=== PATIENT | female | born 1945 | race Caucasian/White ===

== ENCOUNTER 2017-11-12 12:38 | Emergency (ER) | payer OTHER ==
--- NOTE | 2017-11-12 13:11 | ER ---
Nurse's Notes [facility] Name: Avani Taylor Age: 72 yrs Sex: Female : 1945 Arrival Date: 11/12/2017 Time: 12:40 Bed 19 Private MD: Diagnosis: Anxiety disorder, unspecified Presentation: 11/12 12:44 Presenting complaint: EMS states: Pt c/o unable to sleep for 2 months. Pt states "I jl7 don't want any more tests, I'm just tired, I can't sleep.". Transition of care: patient was not received from another setting of care. Onset of symptoms was September 12, 2017. Risk Assessment: Do you want to hurt yourself or someone else? Patient reports no desire to harm self or others. Initial Sepsis Screen: Does the patient meet any 2 criteria? No. Patient's initial sepsis screen is negative. Does the patient have a suspected source of infection? No. Patient's initial sepsis screen is negative. Care prior to arrival: None. 12:44 Method Of Arrival: EMS: [facility] 12:44 Acuity: MARIAH 4 jl7 Triage Assessment: 12:48 General: Appears in no apparent distress. uncomfortable, Behavior is cooperative, jl7 anxious. Pain: Complains of pain in back of neck and head Pain does not radiate. Pain currently is 8 out of 10 on a pain scale. Quality of pain is described as "tense" Pain began years ago. Is continuous. EENT: No signs and/or symptoms were reported regarding the EENT system. Neuro: Level of Consciousness is awake, alert, obeys commands, Oriented to person, place, time. Cardiovascular: Patient's skin is warm and dry. Respiratory: Airway is patent Respiratory effort is even, unlabored, Respiratory pattern is regular, symmetrical. GI: No signs and/or symptoms were reported involving the gastrointestinal system. : No signs and/or symptoms were reported regarding the genitourinary system. Derm: Skin is pink, warm \\T\\ dry. Musculoskeletal: No signs and/or symptoms reported regarding the musculoskeletal system. Historical: - Allergies: 12:48 sertraline; jl7 12:48 OLANZAPINE; jl7 12:48 QUETIAPINE; jl7 - PMHx: 12:48 Anxiety; Depression; Hypertension; jl7 - Immunization history:: Adult Immunizations unknown. - Social history:: Smoking status: unknown. - Ebola Screening: : No symptoms or risks identified at this time. Screenin:21 Abuse screen: Denies threats or abuse. Denies injuries from another. Nutritional jl7 screening: No deficits noted. Tuberculosis screening: No symptoms or risk factors identified. Fall Risk None identified. Assessment: 12:50 General: see triage assessment. jl7 Vital Signs: 12:51 BP 118 / 64; Pulse 75; Resp 16 S; Temp 98.1(O); Pulse Ox 91% on R/A; Weight 98.88 kg jl7 (R); Height 5 ft. 9 in. (175.26 cm) (R); Pain 8/10; 13:21 BP 116 / 68; Pulse 74; Resp 16; Pulse Ox 94% ; jl7 12:51 Body Mass Index 32.19 (98.88 kg, 175.26 cm) jl7 ED Course: 12:40 Patient arrived in ED. 12:41 Sonido Galan PA is PHCP. jr8 12:41 Jose L Hernandez MD is Attending Physician. jr8 12:44 May Granado RN is Primary Nurse. jl7 12:47 Triage completed. jl7 12:48 Arm band placed on right wrist. jl7 12:50 Patient has correct armband on for positive identification. Placed in gown. Bed in low jl7 position. Call light in reach. Side rails up X 1. Pulse ox on. NIBP on. 13:10 Desmond Shaw MD is Referral Physician. jr8 13:22 No provider procedures requiring assistance completed. Patient did not have IV access jl7 during this emergency room visit. Administered Medications: No medications were administered Outcome: 13:10 Discharge ordered by . jr8 13:22 Discharged to home ambulatory. jl7 13:22 Condition: stable 13:22 Discharge instructions given to patient, Instructed on discharge instructions, follow up and referral plans. medication usage, Demonstrated understanding of instructions, follow-up care, medications, Prescriptions given X 2. 13:44 Patient left the ED. jl7 Signatures: Divya Morris RN RN Sonido Galan PA PA jr8 May Granado RN RN jl7
--- NOTE | 2017-11-12 13:11 | EDPHYS ---
Physician Documentation [facility] Name: Avani Taylor Age: 72 yrs Sex: Female : 1945 Arrival Date: 11/12/2017 Time: 12:40 Bed 19 Private MD: ED Physician Jose L Hernandez HPI: 11/12 13:06 This 72 yrs old Female presents to ER via EMS with complaints of Anxiety, jr8 unable to sleep. 13:06 The patient presents to the emergency department with anxiety, depression. Onset: The jr8 symptoms/episode began/occurred gradually, 7 month(s) ago. Past psychiatric history: Prior diagnosis: depression. Associated signs and symptoms: The patient has no apparent associated signs or symptoms. Severity of symptoms: At their worst the symptoms were moderate in the emergency department the symptoms are unchanged. The patient has experienced similar episodes in the past, a few times. The patient has not recently seen a physician. Patient stated that she is anxious and depressed over personal reasons. She would not give specific problems. Stated that she has past traumatic incidents. Came to ED because has not had a good nights sleep in several months and needs sleep. Stated that she is too anxious to sleep. Patient has not seen PCP for problem. Historical: - Allergies: 12:48 sertraline; jl7 12:48 OLANZAPINE; jl7 12:48 QUETIAPINE; jl7 - PMHx: 12:48 Anxiety; Depression; Hypertension; jl7 - Immunization history:: Adult Immunizations unknown. - Social history:: Smoking status: unknown. - Ebola Screening: : No symptoms or risks identified at this time. ROS: 13:06 Eyes: Negative for injury, pain, redness, and discharge, ENT: Negative for injury, jr8 pain, and discharge, Neck: Negative for injury, pain, and swelling, Cardiovascular: Negative for chest pain, palpitations, and edema, Respiratory: Negative for shortness of breath, cough, wheezing, and pleuritic chest pain, Abdomen/GI: Negative for abdominal pain, nausea, vomiting, diarrhea, and constipation, Back: Negative for injury and pain, MS/Extremity: Negative for injury and deformity, Skin: Negative for injury, rash, and discoloration, Neuro: Negative for headache, weakness, numbness, tingling, and seizure. 13:06 Psych: Positive for anxiety, depression. Exam: 13:06 Eyes: Pupils equal round and reactive to light, extra-ocular motions intact. Lids and jr8 lashes normal. Conjunctiva and sclera are non-icteric and not injected. Cornea within normal limits. Periorbital areas with no swelling, redness, or edema. ENT: Nares patent. No nasal discharge, no septal abnormalities noted. Tympanic membranes are normal and external auditory canals are clear. Oropharynx with no redness, swelling, or masses, exudates, or evidence of obstruction, uvula midline. Mucous membranes moist. Neck: Trachea midline, no thyromegaly or masses palpated, and no cervical lymphadenopathy. Supple, full range of motion without nuchal rigidity, or vertebral point tenderness. No Meningismus. Cardiovascular: Regular rate and rhythm with a normal S1 and S2. No gallops, murmurs, or rubs. Normal PMI, no JVD. No pulse deficits. Respiratory: Lungs have equal breath sounds bilaterally, clear to auscultation and percussion. No rales, rhonchi or wheezes noted. No increased work of breathing, no retractions or nasal flaring. Abdomen/GI: Soft, non-tender, with normal bowel sounds. No distension or tympany. No guarding or rebound. No evidence of tenderness throughout. Back: No spinal tenderness. No costovertebral tenderness. Full range of motion. Skin: Warm, dry with normal turgor. Normal color with no rashes, no lesions, and no evidence of cellulitis. MS/ Extremity: Pulses equal, no cyanosis. Neurovascular intact. Full, normal range of motion. Neuro: Awake and alert, GCS 15, oriented to person, place, time, and situation. Cranial nerves II-XII grossly intact. Motor strength 5/5 in all extremities. Sensory grossly intact. Cerebellar exam normal. Normal gait. 13:06 Psych: Behavior/mood is cooperative, anxious, Affect is calm, Oriented to person, place, time, Patient has no thoughts/intents to harm self or others. Judgement / Insight is normal. Memory is normal. Delusions/hallucinations are not present. Vital Signs: 12:51 BP 118 / 64; Pulse 75; Resp 16 S; Temp 98.1(O); Pulse Ox 91% on R/A; Weight 98.88 kg jl7 (R); Height 5 ft. 9 in. (175.26 cm) (R); Pain 8/10; 13:21 BP 116 / 68; Pulse 74; Resp 16; Pulse Ox 94% ; jl7 12:51 Body Mass Index 32.19 (98.88 kg, 175.26 cm) jl7 MDM: 12:41 Patient medically screened. jr8 13:06 Data reviewed: vital signs, nurses notes, and as a result, I will discharge patient. jr8 Data interpreted: Pulse oximetry: on room air is 95 %. Interpretation: normal. Counseling: I had a detailed discussion with the patient and/or guardian regarding: the historical points, exam findings, and any diagnostic results supporting the discharge/admit diagnosis, the need for outpatient follow up, a family practitioner, a psychiatrist, to return to the emergency department if symptoms worsen or persist or if there are any questions or concerns that arise at home. Administered Medications: No medications were administered Disposition: 18:35 Co-signature as Attending Physician, Jose L Hernandez MD. rn Disposition: 11/12/17 13:10 Discharged to Home. Impression: Anxiety disorder, unspecified. - Condition is Stable. - Discharge Instructions: Panic Attacks, Generalized Anxiety Disorder. - Prescriptions for Hydroxyzine HCl 50 mg Oral Tablet - take 1 tablet by ORAL route every 8 hours As needed; 20 tablet. Valium 2 mg Oral Tablet - take 1 tablet by ORAL route every 8 hours As needed; 6 tablet. - Medication Reconciliation Form, Thank You Letter, Antibiotic Education, Prescription Opioid Use form. - Follow up: Desmond Shaw MD; When: 2 - 3 days; Reason: Recheck today's complaints, Continuance of care, Re-evaluation by your physician. - Problem is new. - Symptoms are unchanged. Signatures: Jose L Hernandez MD MD rn Roszak, Josh, PA PA jr8 May Granado RN RN jl7 Corrections: (The following items were deleted from the chart) 13:44 13:10 11/12/2017 13:10 Discharged to Home. Impression: Anxiety disorder, unspecified. jl7 Condition is Stable. Forms are Medication Reconciliation Form, Thank You Letter, Antibiotic Education, Prescription Opioid Use. Follow up: Desmond Shaw; When: 2 - 3 days; Reason: Recheck today's complaints, Continuance of care, Re-evaluation by your physician. Problem is new. Symptoms are unchanged. jr8
[2017-11-12 14:01] VITALS: TEMP 98.1
[2017-11-12 14:04] VITALS: BP 116/68; O2SAT 94
== END 2017-11-12 13:44 | disposition home or self-care (01) ==
LOC: ER 12:38
DX: F41.9 Anxiety disorder, unspecified (principal); Z88.8 Allergy status to other drugs, medicaments and biological substances; F32.9 Major depressive disorder, single episode, unspecified; I10 Essential (primary) hypertension
CPT/HCPCS: 99283

== ENCOUNTER 2022-09-16 06:00 | Day surgery (SDC) | payer OTHER ==
[2022-09-11 13:03] LABS: Absolute Lymphocytes (CBC) 3.1 K/uL (0.7-4.9); Hematocrit 45.3 % (36.0-45.0); Lymphocytes % 34.3 % (15.3-44.8); MCV 85.5 fL (80-100); MPV 7.5 fL (7.6-11.3)
[2022-09-11 13:06] LABS: Protime INR 0.95
[2022-09-11 13:16] LABS: Potassium 4.4 mEq/L (3.5-5.1)
[2022-09-11 13:30] LABS: Specific Gravity 1.028 (1.005-1.030); Urine Bacteria <20 /HPF (<20); Urine Bilirubin NEGATIVE (Negative); Urine Blood 1+ (Negative); Urine Clarity Turbid (Clear); Urine Color Yellow (Yellow); Urine Glucose NEGATIVE (Negative); Urine Mucus 3+ /HPF (None Seen); Urine Protein TRACE (Negative); Urine Urobilinogen Normal (Normal); Urine pH 5.5 (5.0-7.0)
[2022-09-15 08:45] LABS: SARS-CoV-2 Antigen Rapid Res Negative (Negative)
[2022-09-16] MEDS ORDERED: NA CHLORIDE 0.9% 1,000 ML ONE ×2 (06:29→08:39)
[2022-09-16] MEDS ORDERED: FENTANYL CITR 100 MCG/2 ML ONE ×2 (06:47→09:22)
[2022-09-16] MEDS ORDERED: propofoL 200 MG/20 ML VIAL IV ONE (06:47)
[2022-09-16] MEDS ORDERED: GLYCOPYRROLATE 0.2 MG/ML SYR ONE ×2 (06:47→09:58)
[2022-09-16] MEDS ORDERED: LIDOCAINE 2% MPF 5 ML VIAL ONE (06:47)
[2022-09-16] MEDS ORDERED: Phenylephrine HCl 10 MG/ML 1 ML VIAL ONE (06:47)
[2022-09-16] MEDS ORDERED: ROCURONIUM 50 MG/5 ML VIAL IV ONE ×2 (06:47→09:59)
[2022-09-16] MEDS ORDERED: MIDAZOLAM HCL 2 MG/2 ML INJ ONE (06:47)
[2022-09-16] MEDS ORDERED: ONDANSETRON 4 MG/2 ML VIAL ONE (06:48)
[2022-09-16] MEDS ORDERED: NEOSTIGMINE 1 MG/ML -10 ML VIAL ONE (06:48)
[2022-09-16] MEDS ORDERED: NS 0.9% VIAL 20 ML ONE (06:56)
[2022-09-16] MEDS ORDERED: CEFAZOLIN 3 GM in NA CHLORIDE 0.9% 100 ML IVPB SCH (07:00)
[2022-09-16] MEDS: LIDOCAINE 1% W/EPI 1:100,000 50 ML MDV ONE ×2 (07:02→11:07)
[2022-09-16] MEDS ORDERED: CEFAZOLIN SODIUM 1 GM/VIAL ONE (07:02)
[2022-09-16] MEDS ORDERED: NA CHLORIDE 0.9% 100 ML ONE (07:03)
[2022-09-16] MEDS ORDERED: SUCCINYLCHOLINE 20 MG/ML (10 ML) IV ONE (07:10)
[2022-09-16] MEDS ORDERED: HEPARIN 5000 UNIT/ML 1 ML VIAL ONE (08:19)
[2022-09-16] MEDS: VASOPRESSIN 20 UNIT/ML VIAL ONE ×2 (08:47→09:15)
[2022-09-16] MEDS ORDERED: PROMETHAZINE INJ 25 MG/ML AMP IV PRN (12:30)
[2022-09-16] MEDS ORDERED: ACETAMINOPHEN 500 MG TAB PO PRN (12:31)
[2022-09-16] MEDS ORDERED: Ringers Lactate 1,000 ML IV SCH (13:00)
[2022-09-16 13:27] VITALS: O2SAT 94
[2022-09-16 14:18] VITALS: BMI 40.4
[2022-09-16] MEDS: MORPHINE 2 MG/ML SYR IV PRN (14:39)
[2022-09-16] MEDS ORDERED: HOME MED 1 EA UNK (Estradiol [Estrace] 42.5 GM Cream.Appl) VAG SCH (21:15)
[2022-09-17] MEDS: MORPHINE 2 MG/ML SYR IV PRN (04:06)
[2022-09-17 04:08] LABS: Absolute Lymphocytes (CBC) 2.4 K/uL (0.7-4.9); Hematocrit 38.4 % (36.0-45.0); Lymphocytes % 20.8 % (15.3-44.8); MCV 86.2 fL (80-100); MPV 7.5 fL (7.6-11.3); RBC Red Blood Cell Count 4.46 M/uL (3.86-4.86)
[2022-09-17 04:30] LABS: Potassium 4.3 mEq/L (3.5-5.1)
[2022-09-17] MEDS ORDERED: LEVOTHYROXINE SOD 0.088 MG TAB PO SCH (06:00)
[2022-09-17] MEDS ORDERED: Mirabegron [Myrbetriq] 50 MG Tab.Er.24h PO SCH (09:00)
[2022-09-17] MEDS ORDERED: OLANZapine 2.5 MG TAB PO SCH (09:00)
[2022-09-17] MEDS ORDERED: FLUOXETINE 20 MG CAP PO SCH (09:00)
[2022-09-17] MEDS ORDERED: VITAMIN D 1000 UNIT TAB PO SCH (09:00)
[2022-09-17] MEDS ORDERED: BISOPROLOL/HCTZ 5/6.25MG TAB PO SCH (09:00)
[2022-09-17 14:25] VITALS: BP 174/81; TEMP 99
[2022-09-17] MEDS ORDERED: TRAZODONE 50 MG TABLET PO SCH (21:00)
[2022-09-17] MEDS ORDERED: MELATONIN 5 MG TABLET PO SCH (21:00)
== END 2022-09-17 15:07 | disposition home or self-care (01) ==
LOC: OR 06:00 → 2ND 12:40 → OR 09-17 15:07
PROVIDERS: ATTEND Obstetrics & Gynecology
PROC: 0JQC0ZZ Repair Pelvic Region Subcutaneous Tissue and Fascia, Open Approach (ICD-10-PCS; 2022-09-16)
PROC: 0TSD0ZZ Reposition Urethra, Open Approach (ICD-10-PCS; 2022-09-16)
PROC: 0JUC0JZ Supplement of Pelvic Region Subcutaneous Tissue and Fascia with Synthetic Substitute, Open Approach (ICD-10-PCS; 2022-09-16)
PROC: 0USG7ZZ Reposition Vagina, Via Natural or Artificial Opening (ICD-10-PCS; principal; 2022-09-16 07:30)
DX: N99.3 Prolapse of vaginal vault after hysterectomy (principal); N39.3 Stress incontinence (female) (male); R39.15 Urgency of urination; K59.00 Constipation, unspecified; N95.2 Postmenopausal atrophic vaginitis; E03.9 Hypothyroidism, unspecified; F32.A Depression, unspecified; Z20.822 Contact with and (suspected) exposure to COVID-19
CPT/HCPCS: 85025 ×2; 81001; 80048 ×2; 36415 ×3; 86900; 86850; 85610; 86901; 82947 ×5; 85730; 87811; 57282; 57288; 57250; 57267; J2550; J1644; A4216; J2704; J2710; J2370; J2001; J2250; J3010 ×2; J2270 ×2; J2405; J7120; J7030 ×2; J0690 ×2

== ENCOUNTER 2023-02-25 16:11 | Emergency (ER) | payer OTHER, BC ==
--- OUTSIDE RECORDS SUMMARY | 2023-02-25 16:15 | XMS REPORT | Continuity of Care Document ---
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[facility] itis of itis of [facility] left knee left knee [facility] Left sided Left sided Problem Active C ommon sciatica sciatica [facility] Pain, Pain, Diagnosis Active Common joint, joint, [facility] knee, knee, [facility] right right [facility] Unilateral Unilateral Problem Active C ommon primary primary [facility] osteoarthr osteoarthr - [facility] right knee right knee [facility] Bilateral Bilateral Problem Active Com mon primary primary [facility] osteoarthr osteoarthr - [facility] it[facility] knee knee [facility] Allergies, Adverse Reactions, Alerts This patient has no known allergies or adverse reactions. Medications Ordered Filled Start Stop Current Ordering Indication Dosage Frequency Signature Comments Components Source Medication Medication Date Date Medication? Clinician (SIG) Name Name Tramadol Tramadol 2018-05 Yes [place] 1 tablet Common HCl HCl 0-08 Young as needed [facility] 00:00: - [facility] 00 [facility] Risperidone Risperidone Yes [place] not Common Young defined [facility] Levothyroxi Levothyroxi Yes [place] not Common ne Sodium ne Sodium Young defined [facility] Vraylar Vraylar Yes [place] not Common Young defined [facility] Bisoprolol- Bisoprolol- Yes [place] not Common Hydrochloro Hydrochloro Young defined [facility] thiazide thiazide [facility] Procedures This patient has no known procedures. Encounters Start End Encounter Admission Attending Care Care Encounter Source Date/Time Date/Time Type Type Clinicians Facility Department ID 2021-06-19 Outpatient Judith Melendez [facility] [id number] Common 11:01:25 [id number] [facility] 2019-03-01 2019-03-01 Outpatient Yumiko Rebollar [id number] Common 15:00:00 15:00:00 [facility] 2018-02-15 2018-02-15 Outpatient Yumiko Calderont [id number] Common 09:30:00 09:30:00 t [facility] 2018-01-21 2018-01-21 Outpatient Yumiko Calderont [id number] Common 10:00:00 10:00:00 t [facility] and [facility] - [facility] 2018-01-14 2018-01-14 Outpatient Yumiko [place] [id number] Common 09:30:00 09:30:00 t [facility] Sp[facility] and [facility] - [facility] 2018-01-07 2018-01-07 Outpatient [facility] [place] [id number] Common 09:30:00 09:30:00 t [facility] Sp[facility] t and [facility] - [facility] 2017-12-30 2017-12-30 Outpatient [facility] [place] [id number] Common 09:30:00 09:30:00 t [facility] - [facility] Results This patient has no known results.
[2023-02-25 16:41] LABS: Absolute Lymphocytes (CBC) 2.3 K/uL (0.7-4.9); Hematocrit 37.6 % (36.0-45.0); MCV 85.4 fL (80-100); MPV 7.7 fL (7.6-11.3); Platelets 249 thou/uL (152-406)
[2023-02-25 16:50] LABS: Specific Gravity 1.014 (1.005-1.030); Urine Bacteria <20 /HPF (<20); Urine Bilirubin NEGATIVE (Negative); Urine Blood 1+ (Negative); Urine Clarity Clear (Clear); Urine Color Light-Yellow (Yellow); Urine Glucose NEGATIVE (Negative); Urine Mucus Slight /HPF (None Seen); Urine Protein NEGATIVE (Negative); Urine RBC <5 /HPF (None Seen); Urine Urobilinogen Normal (Normal)
--- NOTE | 2023-02-25 17:16 | RAD REPORT ---
EXAM DESCRIPTION: [place] Single View02/25/2023 4:57 pm CLINICAL HISTORY: cough COMPARISON: 2020 FINDINGS: The lungs appear clear of acute infiltrate. The heart is normal size IMPRESSION: No acute abnormalities displayed
[2023-02-25 17:32] LABS: Barbiturates NEGATIVE (NEGATIVE); Benzodiazepines NEGATIVE (NEGATIVE); Cocaine NEGATIVE (NEGATIVE); METHAMPHETAM NEGATIVE (NEGATIVE); Opiates NEGATIVE (NEGATIVE); Phencyclidine NEGATIVE (NEGATIVE); THC Cannibis NEGATIVE (NEGATIVE)
[2023-02-25 17:43] LABS: ALT/SGPT 17 U/L (13-56); AST/SGOT 11 U/L (15-37); Albumin 2.9 g/dL (3.4-5.0); Alkaline Phosphatase 85 U/L (45-117); BUN Blood Urea Nitrogen 17 mg/dL (7-18); Bicarbonate 28 mEq/L (21-32); Bilirubin Total 0.2 mg/dL (0.2-1.0); Glomerular Filtration Rate 82 ml/min (=/>90); Glucose Level 115 mg/dL (74-106); NT PRO-BNP 1139 pg/mL (<450); Potassium 3.3 mEq/L (3.5-5.1); Protein, Total 6.1 g/dL (6.4-8.2); Sodium Level 141 mEq/L (136-145); Troponin High Sensitivity 8.1 pg/mL (<58.9)
[2023-02-25 17:44] LABS: Bilirubin Direct < 0.1 mg/dL (0-0.2); Bilirubin Indirect, Calculated ND mg/dL (0.2-0.8)
[2023-02-25] MEDS ORDERED: CEFTRIAXONE 1000 MG/VIAL ONE (17:47)
[2023-02-25] MEDS ORDERED: NA CHLORIDE 0.9% 50 ML ONE (17:47)
[2023-02-25 17:56] LABS: Methadone ND (NEGATIVE)
--- NOTE | 2023-02-25 18:36 | ER ---
Nurse's Notes [facility] Name: Avani Taylor Age: 77 yrs Sex: Female : 1945 Arrival Date: 02/25/2023 Time: 16:11 Bed 4 Private MD: Diagnosis: Adjustment disorder with mixed anxiety and depressed mood;Patient's other noncompliance with medication regimen-accidental overdose , no harm, not intentional;Insomnia;UTI/ Urinary tract infection, site not specified;Hypokalemia Presentation: 02/25 16:16 Chief complaint: EMS states: toned out to patient home for taking 160mg Fluoxetine. Pt ld1 denies SI. "I took 4 of my fluoxetine pills so that I could get some rest, I have not been sleeping very well. I was not trying to hurt myself.". Coronavirus screen: At this time, the client does not indicate any symptoms associated with coronavirus-19. Ebola Screen: No symptoms or risks identified at this time. Initial Sepsis Screen: Does the patient meet any 2 criteria? No. Patient's initial sepsis screen is negative. Does the patient have a suspected source of infection? No. Patient's initial sepsis screen is negative. Risk Assessment: Do you want to hurt yourself or someone else? Patient reports no desire to harm self or others. Onset of symptoms was February 25, 2023. 16:16 Method Of Arrival: EMS: [facility] ld1 16:16 Acuity: MARIAH 3 ld1 Triage Assessment: 16:17 General: Appears in no apparent distress. comfortable, Behavior is calm, cooperative, ld1 appropriate for age. Pain: Denies pain. EENT: No signs and/or symptoms were reported regarding the EENT system. Neuro: Level of Consciousness is awake, alert, obeys commands, Oriented to person, place, time, situation. Cardiovascular: Capillary refill < 3 seconds Patient's skin is warm and dry. Rhythm is sinus rhythm. Respiratory: Airway is patent Respiratory effort is even, unlabored. GI: Abdomen is round non-distended. : No signs and/or symptoms were reported regarding the genitourinary system. Derm: No signs and/or symptoms reported regarding the dermatologic system. Musculoskeletal: No signs and/or symptoms reported regarding the musculoskeletal system. Historical: - Allergies: 16:17 OLANZAPINE; ld1 16:17 quetiapine; ld1 16:17 sertraline; ld1 - PMHx: 16:17 Anxiety; Depression; Hypertension; ld1 - PSHx: 16:17 Appendectomy; Total abdominal hysterectomy; Cholecystectomy; ld1 - Immunization history:: Adult Immunizations up to date. - Social history:: Smoking status: Patient denies any tobacco usage or history of. Patient/guardian denies using alcohol. - Family history:: not pertinent. Screenin:19 [facility] ED Fall Risk Assessment (Adult) History of falling in the last 3 months, ld1 including since admission No falls in past 3 months (0 pts). Abuse screen: Denies threats or abuse. Denies injuries from another. Nutritional screening: No deficits noted. Tuberculosis screening: No symptoms or risk factors identified. Assessment: 16:19 Reassessment: See triage assessment. ld1 16:55 Reassessment: PT TO BEDSIDE COMMODE. db 17:39 Reassessment: PT ASSISTED TO BEDSIDE COMMODE. db 17:39 Reassessment: Patient appears in no apparent distress at this time. Patient and/or db family updated on plan of care and expected duration. Pain level reassessed. Patient is alert, oriented x 3, equal unlabored respirations, skin warm/dry/pink. PT FRIEND IS AT BEDSIDE. General: Appears in no apparent distress. comfortable, Behavior is calm, cooperative. Neuro: Level of Consciousness is awake, alert, obeys commands, Oriented to person, place, time, situation. 18:30 Reassessment: Patient appears in no apparent distress at this time. Patient and/or db family updated on plan of care and expected duration. Pain level reassessed. Patient is alert, oriented x 3, equal unlabored respirations, skin warm/dry/pink. Patient states feeling better. Patient states symptoms have improved. Respiratory: Airway is patent Respiratory effort is even, unlabored, Respiratory pattern is regular, symmetrical. Vital Signs: 16:16 BP 164 / 87; Pulse 72; Resp 18; Temp 97.6(O); Pulse Ox 100% on R/A; Weight 104.33 kg; ld1 Height 5 ft. 8 in. ; Pain 0/10; 16:39 BP 156 / 87; Pulse 71; Resp 18; Pulse Ox 100% on R/A; ld1 17:30 BP 125 / 81; Pulse 72; Resp 18; Pulse Ox 99% on R/A; db 18:30 BP 118 / 72; Pulse 70; Resp 18; Pulse Ox 100% on R/A; db 16:16 Body Mass Index 34.97 (104.33 kg, 172.72 cm) ld1 16:16 Pain Scale: Adult ld1 ED Course: 16:15 Patient arrived in ED. bd 16:15 Javy Slater MD is Attending Physician. [facility] 16:16 Sara Rios RN is Primary Nurse. ld1 16:17 Triage completed. ld1 16:17 Arm band placed on right wrist. ld1 16:19 Patient has correct armband on for positive identification. Placed in gown. Bed in low ld1 position. Call light in reach. Side rails up X2. residential monitor on. Pulse ox on. NIBP on. Door closed. Noise minimized. Warm blanket given. 16:19 No provider procedures requiring assistance completed. Maintain EMS IV. Dressing ld1 intact. Good blood return noted. Site clean \\T\\ dry. Gauge \\T\\ site: 20G LAC. 16:39 Urinalysis w/ reflexes Sent. ld1 16:39 Urine Drug Screen Sent. ld1 16:59 XRAY Chest (1 view) In Process Unspecified. EDMS 18:35 Parish Darden MD is Referral Physician. [facility] 18:47 Provided Education on: DISCHARGE. 18:47 IV discontinued, intact, bleeding controlled, No redness/swelling at site. db Administered Medications: 16:21 Drug: NS 0.9% IV 1000 ml IV at 1 bolus Per protocol; 1000 mL bolus Route: IV; Rate: 1 ld1 bolus; Site: left antecubital; 18:46 Follow up: Response: No adverse reaction; IV Status: Completed infusion; IV Intake: db 1000ml 17:38 Drug: Rocephin IV 1 grams IV at per protocol once; Given slow IV push per pharmacy db instructions Route: IV; Rate: per protocol; Site: left antecubital; 18:46 Follow up: Response: No adverse reaction; IV Status: Completed infusion; IV Intake: 50mldb 18:40 Drug: Potassium PO Effervescent Tablet 50 mEq PO once; dissolve in 4 ounces of water or db juice Route: PO; 18:46 Follow up: Response: No adverse reaction db Medication: 16:19 VIS not applicable for this client. ld1 Intake: 18:46 IV: 50ml; Total: 50ml. db 18:46 IV: 1000ml; Total: 1050ml. db Outcome: 18:35 Discharge ordered by . radha 18:47 Discharged to home ambulatory, with family, db 18:47 Condition: stable 18:47 Discharge instructions given to patient, Instructed on discharge instructions, follow up and referral plans. Prescriptions given X 1, 18:48 Patient left the ED. db Signatures: Dispatcher [employer] EDTabby Rushing Corey, MD MD cha Sims, Lauren, RN RN ld1 Sonya Queen RN RN db
--- NOTE | 2023-02-25 18:36 | EDPHYS ---
Physician Documentation [facility] Name: Avani Taylor Age: 77 yrs Sex: Female : 1945 Arrival Date: 02/25/2023 Time: 16:11 Bed 4 Private MD: ED Physician Javy Slater HPI: 02/25 16:55 This 77 yrs old Female presents to ER via EMS with complaints of Took home radha medications. 16:55 The patient presents to the emergency department with anxiety, depression. Onset: The radha symptoms/episode began/occurred just prior to arrival. Past psychiatric history: Prior diagnosis: depression. wanted to sleep , took 4 prozac accident. Associated signs and symptoms: The patient has no apparent associated signs or symptoms. Onset: The symptoms/episode began/occurred today. Severity of symptoms: At their worst the symptoms were mild in the emergency department the symptoms are unchanged. The patient has experienced similar episodes in the past, a few times. Historical: - Allergies: 16:17 OLANZAPINE; ld1 16:17 quetiapine; ld1 16:17 sertraline; ld1 - PMHx: 16:17 Anxiety; Depression; Hypertension; ld1 - PSHx: 16:17 Appendectomy; Total abdominal hysterectomy; Cholecystectomy; ld1 - Immunization history:: Adult Immunizations up to date. - Social history:: Smoking status: Patient denies any tobacco usage or history of. Patient/guardian denies using alcohol. - Family history:: not pertinent. ROS: 16:55 Constitutional: Negative for fever, chills, and weight loss, Eyes: Negative for injury, radha pain, redness, and discharge, ENT: Negative for injury, pain, and discharge, Neck: Negative for injury, pain, and swelling, Cardiovascular: Negative for chest pain, palpitations, and edema, Respiratory: Negative for shortness of breath, cough, wheezing, and pleuritic chest pain, Abdomen/GI: Negative for abdominal pain, nausea, vomiting, diarrhea, and constipation, Back: Negative for injury and pain, : Negative for injury, bleeding, discharge, and swelling, MS/Extremity: Negative for injury and deformity, Skin: Negative for injury, rash, and discoloration, Neuro: Negative for headache, weakness, numbness, tingling, and seizure, Psych: Negative for depression, anxiety, suicide ideation, homicidal ideation, and hallucinations, Allergy/Immunology: Negative for hives, rash, and allergies, Endocrine: Negative for neck swelling, polydipsia, polyuria, polyphagia, and marked weight changes, Exam: 16:55 Constitutional: This is a well developed, well nourished patient who is awake, alert, radha and in no acute distress. Head/Face: Normocephalic, atraumatic. Eyes: Pupils equal round and reactive to light, extra-ocular motions intact. Lids and lashes normal. Conjunctiva and sclera are non-icteric and not injected. Cornea within normal limits. Periorbital areas with no swelling, redness, or edema. ENT: Nares patent. No nasal discharge, no septal abnormalities noted. Tympanic membranes are normal and external auditory canals are clear. Oropharynx with no redness, swelling, or masses, exudates, or evidence of obstruction, uvula midline. Mucous membranes moist. Neck: Trachea midline, no thyromegaly or masses palpated, and no cervical lymphadenopathy. Supple, full range of motion without nuchal rigidity, or vertebral point tenderness. No Meningismus. Chest/axilla: Normal chest wall appearance and motion. Nontender with no deformity. No lesions are appreciated. Cardiovascular: Regular rate and rhythm with a normal S1 and S2. No gallops, murmurs, or rubs. Normal PMI, no JVD. No pulse deficits. Respiratory: Lungs have equal breath sounds bilaterally, clear to auscultation and percussion. No rales, rhonchi or wheezes noted. No increased work of breathing, no retractions or nasal flaring. Abdomen/GI: Soft, non-tender, with normal bowel sounds. No distension or tympany. No guarding or rebound. No evidence of tenderness throughout. Back: No spinal tenderness. No costovertebral tenderness. Full range of motion. Skin: Warm, dry with normal turgor. Normal color with no rashes, no lesions, and no evidence of cellulitis. MS/ Extremity: Pulses equal, no cyanosis. Neurovascular intact. Full, normal range of motion. Neuro: Awake and alert, GCS 15, oriented to person, place, time, and situation. Cranial nerves II-XII grossly intact. Motor strength 5/5 in all extremities. Sensory grossly intact. Cerebellar exam normal. Normal gait. Psych: Awake, alert, with orientation to person, place and time. Behavior, mood, and affect are within normal limits. 16:55 ECG was reviewed by the Attending Physician. Vital Signs: 16:16 BP 164 / 87; Pulse 72; Resp 18; Temp 97.6(O); Pulse Ox 100% on R/A; Weight 104.33 kg; ld1 Height 5 ft. 8 in. ; Pain 0/10; 16:39 BP 156 / 87; Pulse 71; Resp 18; Pulse Ox 100% on R/A; ld1 17:30 BP 125 / 81; Pulse 72; Resp 18; Pulse Ox 99% on R/A; db 18:30 BP 118 / 72; Pulse 70; Resp 18; Pulse Ox 100% on R/A; db 16:16 Body Mass Index 34.97 (104.33 kg, 172.72 cm) ld1 16:16 Pain Scale: Adult ld1 MDM: 16:15 Patient medically screened. radha 17:07 Differential diagnosis: drug withdrawal. acute psychotic break, depression, psychosis radha secondary to non-compliance. Differential Diagnosis altered mental status. Data reviewed: vital signs, nurses notes, lab test result(s), EKG, radiologic studies, plain films. Consideration of Admission/Observation Escalation of care including admission/observation considered. I considered the following discharge prescriptions or medication management in the emergency department Medications were administered in the Emergency Department. See MAR. Test considered but Not performed: CT: no ct head. Historians other than the Patient: EMS: ems well informed. Care significantly affected by the following chronic conditions: Hypertension, depression, htn. Counseling: I had a detailed discussion with the patient and/or guardian regarding the historical points, exam findings, and any diagnostic results supporting the discharge/admit diagnosis, lab results, radiology results, the need for outpatient follow up, for definitive care, a family practitioner, a psychiatrist. 02/25 16:18 Order name: Basic Metabolic Panel; Complete Time: 18:10 radha 02/25 16:18 Order name: CBC with Diff; Complete Time: 16:54 radha 02/25 16:18 Order name: LFT's; Complete Time: 18:10 radha 02/25 16:18 Order name: Magnesium; Complete Time: 18:10 radha 02/25 16:18 Order name: NT PRO-BNP; Complete Time: 18:10 radha 02/25 16:18 Order name: PT-INR; Complete Time: 16:54 02/25 16:18 Order name: Troponin HS; Complete Time: 18:10 02/25 16:18 Order name: Acetaminophen; Complete Time: 18:10 02/25 16:18 Order name: ETOH Level; Complete Time: 17:22 02/25 16:18 Order name: Ptt, Activated; Complete Time: 16:54 02/25 16:18 Order name: Salicylate; Complete Time: 17:35 02/25 16:18 Order name: Urine Drug Screen; Complete Time: 18:10 02/25 16:18 Order name: Urinalysis w/ reflexes; Complete Time: 16:54 02/25 16:20 Order name: TSH; Complete Time: 18:10 [facility] 02/25 17:23 Order name: Urine Culture 02/25 16:18 Order name: XRAY Chest (1 view); Complete Time: 17:22 02/25 16:18 Order name: EKG; Complete Time: 16:19 [facility] 02/25 16:18 Order name: Cardiac monitoring; Complete Time: 16:21 [facility] 02/25 16:18 Order name: EKG - Nurse/Tech; Complete Time: 16:45 02/25 16:18 Order name: IV Saline Lock; Complete Time: 16:21 [facility] 02/25 16:18 Order name: Labs collected and sent; Complete Time: 16:39 radha 02/25 16:18 Order name: O2 Per Protocol; Complete Time: 16:20 02/25 16:18 Order name: O2 Sat Monitoring; Complete Time: 16:21 [facility] 02/25 16:18 Order name: Suicide Screening ([place]); Complete Time: 16:21 [facility] EC:55 Rate is 71 beats/min. Rhythm is regular. QRS [place] is Normal. GA interval is normal. QRS radha interval is normal. QT interval is normal. No Q waves. T waves are Normal. No ST changes noted. Clinical impression: Normal ECG, 1st degree heart block, and No evidence of ischemia. Interpreted by me. Reviewed by me. Administered Medications: 16:21 Drug: NS 0.9% IV 1000 ml IV at 1 bolus Per protocol; 1000 mL bolus Route: IV; Rate: 1 ld1 bolus; Site: left antecubital; 18:46 Follow up: Response: No adverse reaction; IV Status: Completed infusion; IV Intake: db 1000ml 17:38 Drug: Rocephin IV 1 grams IV at per protocol once; Given slow IV push per pharmacy db instructions Route: IV; Rate: per protocol; Site: left antecubital; 18:46 Follow up: Response: No adverse reaction; IV Status: Completed infusion; IV Intake: 50mldb 18:40 Drug: Potassium PO Effervescent Tablet 50 mEq PO once; dissolve in 4 ounces of water or db juice Route: PO; 18:46 Follow up: Response: No adverse reaction db Disposition Summary: 02/25/23 18:35 Discharge Ordered Notes: Location: Home radha Problem: new radha Symptoms: have improved radha Condition: Stable radha Diagnosis - Adjustment disorder with mixed anxiety and depressed mood radha - Patient's other noncompliance with medication regimen - accidental overdose , no radha harm, not intentional - Insomnia radha - UTI/ Urinary tract infection, site not specified radha - Hypokalemia radha Followup: radha - With: Private Physician - When: 2 - 3 days - Reason: Recheck today's complaints, Continuance of care, Re-evaluation by your physician Followup: radha - With: Parish Darden MD - When: 2 - 3 days - Reason: Recheck today's complaints, Continuance of care, Re-evaluation by your physician Discharge Instructions: - Discharge Summary Sheet radha - Adjustment Disorder, Adult radha - Potassium Content of Foods radha - Accidental Drug Poisoning, Adult radha - Urinary Tract Infection, Adult radha - Urinary Tract Infection, Adult, [id number] radha - Hypokalemia radha - Persistent Depressive Disorder, Adult radha - Persistent Depressive Disorder, Adult, [id number] radha - Managing Anxiety, Adult radha Forms: - Medication Reconciliation Form [facility] - Thank You Letter radha - Antibiotic Education radha - Prescription Opioid Use radha - Patient Portal Instructions [facility] - Leadership Thank You Letter [facility] Prescriptions: - Macrobid 100 mg Oral Capsule - take 1 capsule ORAL route every 12 hours for 7 days; 14 capsule; Refills: 0, radha Product Selection Permitted Signatures: Dispatcher [employer] Javy Ellis MD MD cha Sims, Lauren, RN RN ld1 Sonya Queen RN RN db
[2023-02-25] MEDS ORDERED: POTASSIUM 25 MEQ EFFERV TAB ONE (18:50)
[2023-02-25 18:53] VITALS: TEMP 97.6
[2023-02-25 18:56] VITALS: BP 118/72; O2SAT 100
--- NOTE | 2023-02-26 16:59 | EKG ---
Test Date: 2023-02-25 Test Time: 16:43:15 Information Technology Auditor: Ana MOORE MEASUREMENT RESULTS: Intervals: Rate: 71 [place]: 230 QRSD: 82 QT: 444 QTc: 482 [place]: P: 37 [place]: 230 QRS: 3 T: 51 INTERPRETIVE STATEMENTS: Sinus rhythm with sinus arrhythmia with 1st degree AV block with frequent premature ventricular complexes Septal infarct, age undetermined Abnormal ECG Compared to ECG 01/23/2019 09:13:38 Ventricular premature complex(es) now present Myocardial infarct finding now present Left ventricular hypertrophy no longer present T-wave abnormality no longer present Electronically Signed On 02-26-23 16:56:30 CDT by Marin Baker
== END 2023-02-25 18:48 | disposition home or self-care (01) ==
LOC: ER 16:11
DX: F43.23 Adjustment disorder with mixed anxiety and depressed mood (principal); G47.00 Insomnia, unspecified; N39.0 Urinary tract infection, site not specified; E87.6 Hypokalemia; T43.221A Poisoning by selective serotonin reuptake inhibitors, accidental (unintentional), initial encounter; I10 Essential (primary) hypertension; Z88.8 Allergy status to other drugs, medicaments and biological substances
CPT/HCPCS: 87088; 85025; 81001; 87086; 80048; 36415; 83735; 85610; 80076; 85730; 84443; 84484; 83880; 80307; 71045; 80143; 80179; 82077; J0696; 93005; 96361; 96365; 99285